=== PATIENT | male | born 1955 ===

== ENCOUNTER 2024-04-10 11:19 | Outpatient (CLI) | payer OTHER, MEDICAID | END 2024-04-10 11:20 | disposition home or self-care (01) | LOC: CSHMRI 11:19 | PROVIDERS: ATTEND Internal Medicine Hematology & Oncology | DX: C76.0 Malignant neoplasm of head, face and neck (principal); I42.7 Cardiomyopathy due to drug and external agent; Z79.69 Long term (current) use of other immunomodulators and immunosuppressants; C31.9 Malignant neoplasm of accessory sinus, unspecified; I08.0 Rheumatic disorders of both mitral and aortic valves | CPT/HCPCS: 70553; 76376; 93306 ==